=== PATIENT | male | born 1990 | race Caucasian/White ===

== ENCOUNTER 2023-02-02 18:31 | Emergency (ER) | payer BC, OTHER ==
[~2023-02-02] VITALS: Ht 182.9 cm; Wt 90.7 kg
[2023-02-02] MEDS: methylPREDNISolone SOD SUCC 125 MG/2ML VIAL IV ONE (18:50)
[2023-02-02] MEDS: IV NS 0.9% 1,000 ML BAG IV ONE (18:50)
[2023-02-02] MEDS: diphenhydrAMINE HCL 50 MG/ML VIAL IV ONE (18:50)
[2023-02-02] MEDS: FAMOTIDINE/PF INJ 20 MG/2 ML VIAL IV ONE (18:50)
--- NOTE | 2023-02-02 18:53 | NUR ---
PATIENT CAME WITH COMPLAINTS OF ALLERGIC REACTION.ALERT AND ORIENTED.PATIENT CONNECTED TO SLOT FLOOR PERSON AND PULSE OXYMETER.BREATHING ON ROOM AIR WITH OUT ANY DISTRESS.ALL SAFTEY PRECAUTIONS AT BED SIDE.AWAITING MD FOR EVAL.
--- NOTE | 2023-02-02 18:53 | NUR ---
IV INSERTED ON RT AC NO 20G ,BLOOD COLLECTED .
[2023-02-02] MEDS ORDERED: diphenhydrAMINE HCL 50 MG/ML VIAL ONE (18:55)
[2023-02-02] MEDS ORDERED: methylPREDNISolone SOD SUCC 125 MG/2ML VIAL ONE (18:55)
[2023-02-02] MEDS ORDERED: FAMOTIDINE/PF INJ 20 MG/2 ML VIAL IV ONE (18:55)
[2023-02-02] MEDS ORDERED: PRED50TA PO (19:43)
[2023-02-02] MEDS ORDERED: DIPH25CA83 PO (19:43)
[2023-02-02] MEDS ORDERED: FAMO-131 PO (19:43)
[2023-02-02 19:57] VITALS: BP 136/81; TEMP 98.2; O2SAT 100
--- NOTE | 2023-02-02 19:57 | NUR ---
Patient discharged to home in stable condition. Written and verbal after care instructions given. Patient verbalizes understanding of instruction.
--- NOTE | 2023-02-02 19:57 | NUR ---
IV removed. Catheter intact and site benign. Pressure and 4x4 applied to site. No bleeding noted.
== END 2023-02-02 19:58 | disposition home or self-care (01) ==
LOC: ER 18:35
DX: T88.1XXA Other complications following immunization, not elsewhere classified, initial encounter (principal); Z88.2 Allergy status to sulfonamides
CPT/HCPCS: 99284; 96374; 96375; 96361; J1200; J3490; J2930; J7030

== ENCOUNTER 2025-06-19 18:33 | Emergency (ER) | payer BC ==
[~2025-06-19] VITALS: Ht 182.9 cm; Wt 90.7 kg
[~2025-06-19 18:33] MED LIST: DIPH25CA83 PO; FAMO-131 PO; PRED50TA PO
[2025-06-19 19:48] LABS: PLATELET COUNT (AUTO) 160 K/uL (150-450); RED BLOOD CELL COUNT(AUTO) 5.54 MIL/uL (4.5-6.0); RED CELL DISTRIBUTION WIDTH 12.9 % (11.5-15.0); WHITE BLOOD COUNT (AUTO) 5.8 K/uL (4.3-11.0)
[2025-06-19 19:56] LABS: CALCIUM, SERUM 8.8 mg/dL (8.5-10.1); CREATININE 1.4 mg/dL (0.6-1.3); SODIUM SERUM 138.0 mmol/L (136-145); UREA NITROGEN, BLOOD 14.0 mg/dL (7-18)
[2025-06-19 20:02] LABS: ASPARTATE AMINOTRANSFERASE 31.0 U/L (15-37); TOTAL PROTEIN, SERUM 7.8 g/dL (6.4-8.2)
[2025-06-19 20:04] LABS: INR 1.13 (0.91-1.10); LACTIC ACID 0.8 mmol/L (0.4-2.0)
[2025-06-19] MEDS: IV NS 0.9% 1,000 ML BAG IV ONE (20:10)
[2025-06-19] MEDS ORDERED: DOXY-326 PO (20:21)
[2025-06-19 20:47] LABS: APPEARANCE,URINE CLEAR (CLEAR); BLOOD, URINE 1+ Ery/uL (NEGATIVE); LEUKOCYTE ESTERASE ,URINE NEGATIVE (NEGATIVE); NITRITE, URINE NEGATIVE (NEGATIVE); UGLUCOSE NEGATIVE (NEGATIVE)
[2025-06-19 20:52] VITALS: BP 138/86; TEMP 99; O2SAT 96
[2025-06-19 21:13] LABS: ADD URINE CULTURE NO; SQUAMOUS EPITHELIAL CELL,UR Few /HPF (None Seen)
== END 2025-06-19 20:52 | disposition home or self-care (01) ==
LOC: ER 18:45
DX: L02.413 Cutaneous abscess of right upper limb (principal); R07.89 Other chest pain; Z79.52 Long term (current) use of systemic steroids; Z88.2 Allergy status to sulfonamides
CPT/HCPCS: 99285; 96360; 71045; 93005; 84145; 85025; 80048; 87040 ×2; 87086; 83605; 80076; 87186; 81001; 36415; 85730; J7030

== ENCOUNTER 2025-06-20 19:42 | Inpatient (IN) | payer BC ==
[~2025-06-20] VITALS: Ht 182.9 cm; Wt 104.3 kg
[~2025-06-20 19:42] MED LIST changes: +DOXY-326 PO
[2025-06-20 20:00] VITALS: BP 150/82; TEMP 98.8; O2SAT 99
[2025-06-20] MEDS ORDERED: PIPERACI/TAZO 3.375GM/D5W 50ML PB IV ONE (20:30)
[2025-06-20 20:44] LABS: PLATELET COUNT (AUTO) 130 K/uL (150-450); RED BLOOD CELL COUNT(AUTO) 5.36 MIL/uL (4.5-6.0); RED CELL DISTRIBUTION WIDTH 13.3 % (11.5-15.0); WHITE BLOOD COUNT (AUTO) 5.0 K/uL (4.3-11.0)
[2025-06-20] MEDS: IV NS 0.9% 1,000 ML BAG IV ONE (20:45)
[2025-06-20] MEDS: PIPERACILLIN /TAZOBACTAM 3.375 G in IV D5W 50 ML IV ONE (20:45)
[2025-06-20 20:52] LABS: CALCIUM, SERUM 8.8 mg/dL (8.5-10.1); CREATININE 1.3 mg/dL (0.6-1.3); SODIUM SERUM 138.0 mmol/L (136-145); UREA NITROGEN, BLOOD 13.0 mg/dL (7-18)
[2025-06-20 20:58] LABS: ASPARTATE AMINOTRANSFERASE 40.0 U/L (15-37); TOTAL PROTEIN, SERUM 7.6 g/dL (6.4-8.2)
[2025-06-20 21:00] LABS: LACTIC ACID 1.0 mmol/L (0.4-2.0)
[2025-06-20 22:00] VITALS: BP 150/82; TEMP 98.8; O2SAT 99
[2025-06-20] MEDS ORDERED: Z GUARD REMEDY 4 OZ OINT TP PRN (22:00)
[2025-06-20] MEDS ORDERED: MAG HYDROX/AL HYDROX/SIMETH 30 ML UDC PO PRN (22:00)
[2025-06-20] MEDS ORDERED: ONDANSETRON HCL/PF 4 MG/2 ML VIAL IVP PRN (22:00)
[2025-06-20] MEDS ORDERED: HYDROCODONE/APAP 5/325MG TABLET PO PRN (22:00)
[2025-06-20] MEDS ORDERED: MAGNESIUM HYDROXIDE 30 ML UDC PO PRN (22:00)
[2025-06-20] MEDS: POTASSIUM CHLORIDE 20 MEQ TAB.PRT.SR PO ONE (22:27)
[2025-06-20] MEDS: ZOLPIDEM TARTRATE 5 MG TABLET PO PRN (22:48)
[2025-06-21] MEDS ORDERED: PIPERACI/TAZO 3.375GM/D5W 50ML PB IV ONE (04:02)
[2025-06-21] MEDS: IV NS 0.9% 1,000 ML IV PRN (05:00)
[2025-06-21] MEDS: PIPERACILLIN /TAZOBACTAM 3.375 G in IV D5W 50 ML IV SCH (05:01)
[2025-06-21 05:20] VITALS: BP 135/76; TEMP 102; O2SAT 97
[2025-06-21] MEDS: ACETAMINOPHEN 325 MG TABLET PO PRN (05:27)
[2025-06-21 06:29] LABS: PLATELET COUNT (AUTO) 129 K/uL (150-450); RED BLOOD CELL COUNT(AUTO) 5.14 MIL/uL (4.5-6.0); RED CELL DISTRIBUTION WIDTH 13.2 % (11.5-15.0); WHITE BLOOD COUNT (AUTO) 4.6 K/uL (4.3-11.0)
[2025-06-21 06:49] LABS: CALCIUM, SERUM 8.5 mg/dL (8.5-10.1); CREATININE 1.3 mg/dL (0.6-1.3); PHOSPHORUS 2.6 mg/dL (2.5-4.9); SODIUM SERUM 138.0 mmol/L (136-145); UREA NITROGEN, BLOOD 10.0 mg/dL (7-18)
[2025-06-21 08:00] VITALS: BP 135/91; TEMP 98.1; O2SAT 98
[2025-06-21] MEDS: PANTOPRAZOLE 40 MG TABLET.DR PO SCH (08:10)
[2025-06-21] MEDS: PIPERACILLIN /TAZOBACTAM 3.375 G in IV D5W 100 ML IV SCH (10:05)
[2025-06-21] MEDS ORDERED: PIPERACILLIN /TAZOBACTAM 3.375 G in IV D5W 50 ML IV SCH (12:00)
[2025-06-21 16:00] VITALS: BP 135/75; TEMP 98.8; O2SAT 100
[2025-06-21 20:00] VITALS: BP 127/75; TEMP 98.2; O2SAT 97
[2025-06-22 08:00] VITALS: BP 132/81; TEMP 98.1; O2SAT 98
[2025-06-22] MEDS ORDERED: IOHEXOL-300 100 ML VIAL IV ONE (13:09)
[2025-06-22] MEDS ORDERED: IV NS 0.9% 250 ML IV ONE (13:09)
[2025-06-22 16:00] VITALS: BP 135/79; TEMP 100.6; O2SAT 98
[2025-06-22 20:00] VITALS: BP 128/78; TEMP 98.1; O2SAT 98
[2025-06-22 22:51] LABS: HIV-1/2 ANTIBODY NON REACTIVE (NONREACTIVE)
[2025-06-22 23:28] LABS: APPEARANCE,URINE CLEAR (CLEAR); BLOOD, URINE 1+ Ery/uL (NEGATIVE); LEUKOCYTE ESTERASE ,URINE NEGATIVE (NEGATIVE); NITRITE, URINE NEGATIVE (NEGATIVE); UGLUCOSE NEGATIVE (NEGATIVE)
[2025-06-22 23:50] LABS: ADD URINE CULTURE NO; SQUAMOUS EPITHELIAL CELL,UR 0-2 /HPF (None Seen)
[2025-06-22 23:59] VITALS: BP 128/78; TEMP 98.1; O2SAT 98
[2025-06-23 07:00] VITALS: BP 130/73; TEMP 98.1; O2SAT 100
[2025-06-23 15:00] VITALS: BP 123/75; TEMP 98.6; O2SAT 99
[2025-06-23] MEDS: LEVOFLOXACIN (250MG) 250 MG TABLET PO SCH (17:18)
[2025-06-23 20:00] VITALS: BP 122/61; TEMP 97.7; O2SAT 100
[2025-06-23] MEDS: AZITHROMYCIN 250 MG TABLET PO SCH (20:45)
[2025-06-23] MEDS: CEFTRIAXONE 1 G in IV D5W 50 ML IV SCH (20:45)
[2025-06-24 07:00] VITALS: BP 140/81; TEMP 98.1; O2SAT 99
[2025-06-24] MEDS ORDERED: DOSING PER PHARMACY-GENTAMICIN IV XX PRN (11:00)
[2025-06-24] MEDS: GENTAMICIN 400 MG in IV D5W 100 ML IV SCH (11:54)
[2025-06-24] MEDS: DOXYCYCLINE HYCLATE (100 MG) 100 MG TABLET PO SCH (11:54)
[2025-06-24 13:24] LABS: ASPARTATE AMINOTRANSFERASE 55.0 U/L (15-37); CALCIUM, SERUM 8.4 mg/dL (8.5-10.1); CREATININE 1.0 mg/dL (0.6-1.3); SODIUM SERUM 144.0 mmol/L (136-145); TOTAL PROTEIN, SERUM 7.4 g/dL (6.4-8.2); UREA NITROGEN, BLOOD 12.0 mg/dL (7-18)
[2025-06-24 13:29] LABS: PLATELET COUNT (AUTO) 161 K/uL (150-450); RED BLOOD CELL COUNT(AUTO) 4.97 MIL/uL (4.5-6.0); RED CELL DISTRIBUTION WIDTH 13.0 % (11.5-15.0); WHITE BLOOD COUNT (AUTO) 5.0 K/uL (4.3-11.0)
[2025-06-24 15:00] VITALS: BP 135/75; TEMP 98.4; O2SAT 98
[2025-06-24 20:00] VITALS: BP 99/76; TEMP 98.2; O2SAT 100
[2025-06-25] MEDS ORDERED: AMPICILLIN 1 GM VIAL ONE (00:08)
[2025-06-25] MEDS: AMPICILLIN 1 GM in IV NS 0.9% 50 ML IV SCH (00:44)
[2025-06-25 08:00] VITALS: BP 140/89; TEMP 98.4; O2SAT 100
[2025-06-25 08:31] LABS: CALCIUM, SERUM 8.8 mg/dL (8.5-10.1); CREATININE 1.2 mg/dL (0.6-1.3); SODIUM SERUM 141.0 mmol/L (136-145); UREA NITROGEN, BLOOD 11.0 mg/dL (7-18)
[2025-06-25 16:00] VITALS: BP 126/72; TEMP 98.2; O2SAT 100
[2025-06-25 20:59] VITALS: BP 132/72; TEMP 98.4; O2SAT 98
[2025-06-25] MEDS: AMPICILLIN 2 GM in IV NS 0.9% 50 ML IV SCH (23:34)
[2025-06-26 06:46] LABS: CALCIUM, SERUM 8.7 mg/dL (8.5-10.1); CREATININE 1.0 mg/dL (0.6-1.3); SODIUM SERUM 140.0 mmol/L (136-145); UREA NITROGEN, BLOOD 13.0 mg/dL (7-18)
[2025-06-26 08:00] VITALS: BP 126/82; TEMP 98.2; O2SAT 100
[2025-06-26] MEDS: ACIDOPHILUS/BULGARICUS 1 EACH TAB.CHEW PO SCH (09:07)
[2025-06-26 16:00] VITALS: BP 126/72; TEMP 98.4; O2SAT 99
[2025-06-26 19:06] LABS: *EBV AB VCA, IgG 400.0 U/mL (0.0-17.9); *EBV AB VCA, IgM <36.0 U/mL (0.0-35.9); *EBV NUCLEAR Ag AB, IgG 54.7 U/mL (0.0-17.9)
[2025-06-26 20:00] VITALS: BP 131/72; TEMP 98.1; O2SAT 98
[2025-06-27 07:18] LABS: CALCIUM, SERUM 9.1 mg/dL (8.5-10.1); CREATININE 1.1 mg/dL (0.6-1.3); SODIUM SERUM 140.0 mmol/L (136-145); UREA NITROGEN, BLOOD 12.0 mg/dL (7-18)
[2025-06-27 08:00] VITALS: BP 126/76; TEMP 98.1; O2SAT 98
[2025-06-27] MEDS ORDERED: AMPI2VIA IV (10:15)
[2025-06-27] MEDS ORDERED: AMPICILLIN SODIUM 2 GM in IV NS 0.9% 100 ML IV SCH (12:00)
[2025-06-27 15:38] VITALS: BP 127/81; TEMP 97.9; O2SAT 97
[2025-06-27] MEDS: AMPICILLIN SODIUM 2 GM in IV NS 0.9% 100 ML IV SCH (17:37)
[2025-06-27 20:00] VITALS: BP 129/85; TEMP 98.1; O2SAT 96
[2025-06-27 21:17] VITALS: BP 129/85; TEMP 98.1; O2SAT 96
[2025-06-28 08:00] VITALS: BP 128/79; TEMP 97.5; O2SAT 100
[2025-06-28] MEDS ORDERED: LOPERAMIDE HCL (2 MG CAP) 2 MG CAPSULE PO PRN (08:30)
[2025-06-28 08:57] LABS: CALCIUM, SERUM 9.1 mg/dL (8.5-10.1); CREATININE 1.2 mg/dL (0.6-1.3); SODIUM SERUM 140.0 mmol/L (136-145); UREA NITROGEN, BLOOD 15.0 mg/dL (7-18)
== END 2025-06-28 09:20 | disposition home health service (06) | DRG 372 ==
LOC: ER 19:43 → MED 21:26
PROVIDERS: ADMIT Nurse Practitioner Acute Care; ATTEND Nurse Practitioner Acute Care
PROC: 05HC33Z Insertion of Infusion Device into Left Basilic Vein, Percutaneous Approach (ICD-10-PCS; principal; 2025-06-27)
DX: A03.9 Shigellosis, unspecified (principal); L03.113 Cellulitis of right upper limb; R78.81 Bacteremia; D69.6 Thrombocytopenia, unspecified; A04.5 Campylobacter enteritis; B96.89 Other specified bacterial agents as the cause of diseases classified elsewhere; E87.6 Hypokalemia; R16.1 Splenomegaly, not elsewhere classified; R73.9 Hyperglycemia, unspecified; R53.81 Other malaise; Z88.2 Allergy status to sulfonamides; R79.89 Other specified abnormal findings of blood chemistry
CPT/HCPCS: 36415; 71250-TC; 73201-TC; 80048-TC; 80053-TC; 80076-TC; 80170-TC; 81001; 83605-TC; 83735-TC; 84100-TC; 85025-TC; 86664; 87040-TC; 87045-TC; 87086-TC; 87806; 93307-TC; A4223; G0378; J0290; J0696; J1580; J2543; J7030; J7050; J7060; Q9967